=== PATIENT | male | born 1975 | race Hispanic/Latino ===

== ENCOUNTER 2021-06-14 13:31 | Outpatient (CLI) | payer MEDICAID, SELFPAY ==
[2021-06-14 13:34] LABS: Bacteria 0 SEEN /hpf (None Seen); Mucous, Urine 0 SEEN /hpf (<or=2+); Red Blood Cells-Urine 0 SEEN /hpf (0-5); Squamous Epithelial Cells - UA 0 SEEN /hpf (0-5); White Blood Cells 0 SEEN /hpf (0-5)
[2021-06-14 15:20] LABS: Color, Urine Yellow (Yellow); Glucose, Dipstick 1000 mg/dl (Normal); Ketone-Dipstick Negative (Negative); Leukocyte Esterase-Dipstick Negative /ul (Negative); Nitrite-Dipstick Negative (Negative); Occult Blood-Urine Negative /ul (Negative); Protein-Dipstick Negative (Negative); Urine Bilirubin Dipstick Negative (Negative); Urine Clarity Clear (Clear); Urine Urobilinogen Normal (Normal); Urine pH 6.5 (5.0 - 8.0)
== END 2021-06-14 23:59 | disposition home or self-care (01) ==
LOC: BIMLAB 13:33 → LABSPEC 13:34
PROVIDERS: PCP Internal Medicine; Visit Provider Internal Medicine
DX: E11.9 Type 2 diabetes mellitus without complications (principal); I10 Essential (primary) hypertension; F10.10 Alcohol abuse, uncomplicated
CPT/HCPCS: 81001; 87086; 87088

== ENCOUNTER 2021-06-16 09:17 | Outpatient (CLI) | payer MEDICAID, SELFPAY ==
[2021-06-16 12:29] LABS: Absolute Lymphocyte Count 1.56 X10^3/uL (0.83-4.51); Absolute Neutrophil Count 5.1 X10^3/uL (2.0-7.7); Basophil# 0.06 X10^3/uL; Basophil% 0.8 % (0-1); Eosinophil# 0.19 X10^3/uL; Eosinophils% 2.5 % (0-5); Hematocrit 40.9 % (40-54); Hemoglobin 13.5 g/dL (13.0-16.5); Lymphocyte # 1.56 X10^3/ul (0.83-4.51); Lymphocyte % 20.6 % (19-41); Mean Corpuscular Hgb 32.1 pg (27.0-32.0); Mean Corpuscular Volume 97.1 fL (80-94); Monocyte# 0.62 X10^3/uL; Monocyte% 8.2 % (0-10); NRBC Flagged by Analyzer 0 % (0-5); Neutrophil # 5.13 X10^3/uL (2.7-7.7); Neutrophil % 67.5 % (47-70); Platelet Count 243 K/mm3 (150-450); RBC Distribution Width CV 11.5 % (11.6-14.6); RBC Distribution Width SD 41.1 fl (35.1-43.9); Red Blood Count 4.21 M/mm3 (4.6-6.2); White Blood Count 7.6 K/mm3 (4.4-11.0)
[2021-06-16 13:00] LABS: ALB/GLOB Ratio 1.2 RATIO (0.9-2.4); AST(SGOT) 42 U/L (15-37); Alanine Aminotransfer ALT/SGPT 78 U/L (16-61); Albumin, Serum 3.8 g/dL (3.2-5.0); Alkaline Phosphatase 103 U/L (45-117); Anion Gap 4 (5-15); BUN 10 mg/dL (7-18); BUN/Creat Ratio 12.6 RATIO (10-20); Calcium,Total 9.2 mg/dL (8.5-10.1); Chloride 101 mmol/L (98-107); Cholesterol 159 mg/dL (200); EST Glomerular Filtration Rate 111 mL/min (>60); Est Glom Filt Rate - Afr Amer 134 mL/min (>60); Free T3 2.7 pg/mL (2.18-3.98); Globulin 3.1 g/dL (2.2-4.2); Glucose 140 mg/dL (74-106); High Density Lipoprotein 40 mg/dL; PSA,Total - Annual Screen 0.63 ng/mL (0.00-4.00); Potassium 4.4 mmol/L (3.5-5.1); Protein, Total 6.9 g/dL (6.4-8.2); Sodium Level 135 mmol/L (136-145); T4 Free Direct 0.86 ng/dL (0.76-1.46); Thyroid Stim Hormone (TSH) 4.07 uIU/mL (0.358-3.74); Triglycerides 116 mg/dL; Very Low Density Lipoprotein 23 mg/dL (5-40)
== END 2021-06-16 23:59 | disposition home or self-care (01) ==
LOC: BIMLAB 09:22
PROVIDERS: PCP Internal Medicine; Referring Provider Internal Medicine; Visit Provider Internal Medicine
DX: I10 Essential (primary) hypertension (principal); E11.9 Type 2 diabetes mellitus without complications; F10.10 Alcohol abuse, uncomplicated; Z12.5 Encounter for screening for malignant neoplasm of prostate
CPT/HCPCS: 84153; 36415; 80053; 80061; 82306; 84439; 84443; 84481; 85025; G0103

== ENCOUNTER 2021-10-05 08:47 | Emergency (ER) | payer MEDICAID, SELFPAY ==
[2021-10-05 08:48] VITALS: BP 125/80; PULSE 67; RESP 14; TEMP 35.5; O2SAT 100; BMI 24.3
--- NOTE | 2021-10-05 08:55 | EDS_ITS ---
HPI History of Present Illness Chief Complaint: Hypoglycemia Informant: patient Onset/Context/Timing Onset: Today (JPTA) Context: Gradual Onset Timing: Continuous Quality: shaky, lightheaded, weak Location: all over Current Severity: Mild Maximum Severity: Severe Worsened by: nothing in particular Relieved by: drinking sugary drinks Narrative Narrative: Patient is typed diabetic, he states he took his Lantus and his Humalog 10 units this morning like he usually does, his blood sugar was fine this morning in the low 100 range, drink a protein shake for breakfast and was in her hurry and did not eat anything else, and then his sugar dropped a short time later, at least that is what he felt like. He went somewhere but they could not check his sugar and he did not have his wireless meter with him, so they directed him to the ER but by then, he is already drank orange juice and Mountain Dew, and now is feeling better. No recent illness. [facility] Medical History Alcohol abuse Atrial fibrillation Diabetes Hypertension Pancreatitis Seasonal allergies Home Medications pen needle, diabetic 30 gauge x 5/16 #100 ea 06/22/21 [Rx Last Taken Unknown] insulin glargine 100 unit/mL (3 mL) subcutaneous pen (Lantus Solostar U-100 Insu jesus alberto) 35 unit (0.35 mL) subcut QAM #15 mL 07/02/21 [Rx Last Taken Unknown] insulin lispro 100 unit/mL subcutaneous pen (Humalog KwikPen (U-100) Insulin) 5 unit (0.05 mL) subcut TID #15 mL 07/02/21 [Rx Last Taken Unknown] alcohol swabs 1 pad topical .Twice daily #100 ea 08/03/21 [Rx Last Taken Unknown] escitalopram oxalate 10 mg tablet 10 mg PO DAILY #90 tabs 08/09/21 [Rx Last Taken Unknown] magnesium oxide 400 mg PO BID #180 tabs 08/09/21 [Rx Last Taken Unknown] cholecalciferol (vitamin D3) 1,250 mcg (50,000 unit) capsule 1,250 mcg PO QWEEK #12 caps 09/01/21 [Rx Last Taken Unknown] metoprolol tartrate 25 mg tablet 12.5 mg PO BID 09/01/21 [History Last Taken Unknown] naltrexone microspheres 380 mg intramuscular suspension,extended release (Vivitrol) 380 mg IM 09/01/21 [History Last Taken Unknown] flash glucose scanning reader ([employer]Style Mandeep 2 [place]) #1 ea 09/02/21 [Rx Last Taken Unknown] flash glucose sensor (FreeStyle Mandeep 2 Sensor kit) #2 ea 09/02/21 [Rx Last Taken Unknown] empty container (Sharps Container) #1 ea 09/07/21 [Rx Last Taken Unknown] glucagon 3 mg/actuation nasal spray (Baqsimi) 3 mg intranasal ONCE #1 ea 09/07/21 [Rx Last Taken Unknown] swab (Cotton Swabs) #1,000 ea 09/07/21 [Rx Last Taken Unknown] Allergy/AdvReac Type Severity Reaction Status Date / Time No Known Allergies Allergy Verified 10/05/21 08:50 Family History Other Anxiety Cancer Diabetes Heart disease Hypertension Social History Smoking Status: Current every day smoker alcohol intake: former substance use type: does not use what type of physical activity do you participate in: running [employer] ROS ED Constitutional Constitutional ED: Reports as per HPI, malaise and sweats; Denies chills or fever(s) Eyes Eyes: Denies change in vision or diplopia ENT ENT ED: Denies rhinorrhea or sore throat Cardiovascular Cardiovascular: Denies chest pain or palpitations Respiratory/Chest Respiratory/Chest: Denies cough or dyspnea Gastrointestinal Gastrointestinal: Denies abdominal pain, diarrhea, nausea or vomiting Genitourinary Genitourinary ED: Denies dysuria or hematuria Musculoskeletal Musculoskeletal: Denies back pain or neck pain Integumentary Denies abscess or rash Neurologic Neurologic: Denies headache(s), paresthesias or weakness Psychiatric Psychiatric: Denies anxiety or suicidal thoughts EXAM Physical Exam Const Vital Signs: 10/05/21 08:48 Temperature 95.9 F L Temperature Source Temporal Pulse Rate 67 Respiratory Rate 14 Blood Pressure 125/80 H Blood Pressure Mean 95 Pulse Ox 100 Oxygen Delivery Method Room Air Positive well nourished and well developed General Appearance ED: well developed and NAD HEENT Reports moist mucous membranes normocephalic and atraumatic Eyes PERRL and EOMs intact bilaterally Neck full ROM and supple Resp normal respiratory effort and clear to auscultation bilaterally Cardio regular rate, regular rhythm and no murmurs Rate: Negative for tachycardic GI non-tender and non-distended Auscultation: normoactive bowel sounds Palpation: soft Back/Spine no CVA tenderness General Back: other FROM Extremity normal to inspection General Extremety ED: Negative for edema, pulses abnormal or tenderness General Extremity: Negative for edema or pulses abnormal Neuro oriented x3, CN's II-XII intact bilaterally and no sensory deficits noted Sensorium / Orientation: awake and alert Motor Exam: strength 5/5 throughout Skin no rashes or lesions noted and no wounds Discharge Plan Triage Chief Complaint: Hypoglycemia ED Provider: Reyes Rodrigues Dx/Rx/DC Orders Clinical Impression: Iatrogenic hypoglycemia Instructions: ED Diabetic Insulin Reaction Prescriptions: No Action metoprolol tartrate 25 mg tablet 12.5 mg PO BID Vivitrol 380 mg suspension,extended rel recon 380 mg IM Label Comments: ADMINISTER VIVITROL 380MG SUSPENSION BY DEEP INTRAMUSCULAR INJECTION INTO A GLUTEAL MUSCLE, ALTERNATING BUTTOCKS PER MONTHLY INJECTION. KEEP REFRIGERATED. cholecalciferol (vitamin D3) 1,250 mcg (50,000 unit) capsule 1,250 mcg PO QWEEK Qty: 12 0RF (DME) pen needle, diabetic 30 gauge x 5/16 needle See Rx Instructions .ROUTE .MEDSUPPLY Qty: 100 1RF Rx Instructions: As directed insulin lispro [Humalog KwikPen Insulin] 100 unit/mL insulin pen 5 unit subcut TID Qty: 15 1RF Rx Instructions: Take with meals. Lantus Solostar U-100 Insulin 100 unit/mL (3 mL) insulin pen 35 unit subcut QAM Qty: 15 3RF alcohol swabs Pads, Medicated 1 pad topical .Twice daily Qty: 100 1RF escitalopram oxalate 10 mg tablet 10 mg PO DAILY Qty: 90 1RF magnesium oxide 400 mg magnesium tablet 400 mg PO BID Qty: 180 1RF (DME) FreeStyle Mandeep 2 [place] Misc See Rx Instructions .Route Qty: 1 0RF Rx Instructions: As directed (DME) FreeStyle Mandeep 2 Sensor Kit See Rx Instructions .Route Qty: 2 5RF Rx Instructions: As directed (DME) Cotton Swabs Swab See Rx Instructions .ROUTE .MEDSUPPLY Qty: 1000 0RF Rx Instructions: As directed Baqsimi 3 mg/actuation spray,non-aerosol 3 mg intranasal ONCE Qty: 1 0RF (DME) Sharps Container Misc See Rx Instructions .Route Qty: 1 3RF Rx Instructions: As directed Primary Care Provider: Pamela Agudelo Referrals: Pamela Agudelo MD [Primary Care Provider] - As Needed Disposition Disposition: Home, Self Care
--- NOTE | 2021-10-05 09:08 | ED.RN ---
pt given 2 OJ, ham and cheese sandwich, cheese stick, 2 packs of sena crackers, and pack of oreos.
[2021-10-05 09:55] LABS: Bedside Glucose 97 mg/dL (74-106)
[2021-10-05 09:55] LABS: Bedside Glucose 54 mg/dL (74-106)
[2021-10-05 10:25] LABS: Bedside Glucose 177 mg/dL (74-106)
== END 2021-10-05 10:25 | disposition home or self-care (01) ==
LOC: ED 09:33
PROVIDERS: Emergency Provider Emergency Medicine; PCP Internal Medicine; Visit Provider Emergency Medicine
DX: E11.649 Type 2 diabetes mellitus with hypoglycemia without coma (principal); F17.200 Nicotine dependence, unspecified, uncomplicated
CPT/HCPCS: 82962; 99282